=== PATIENT | male | born 1990 | race Hispanic/Latino ===

== ENCOUNTER 2017-11-17 21:53 | Emergency (ER) | payer SELFPAY ==
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
== END 2017-11-17 23:15 | disposition home or self-care (01) ==
LOC: ER 21:53
DX: R21 Rash and other nonspecific skin eruption (principal)
CPT/HCPCS: 99281

== ENCOUNTER 2017-11-22 07:01 | Emergency (ER) | payer SELFPAY ==
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
== END 2017-11-22 07:36 | disposition home or self-care (01) ==
LOC: ER 07:01
DX: R21 Rash and other nonspecific skin eruption (principal)
CPT/HCPCS: 99282

== ENCOUNTER 2022-12-23 11:46 | Emergency (ER) | payer SELFPAY ==
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
[2022-12-23] MEDS ORDERED: IBUPROFEN 200 MG TAB PO ONE (12:23)
[2022-12-23] MEDS ORDERED: IBUPROFEN 400 MG TAB ONE (12:23)
[2022-12-23] MEDS ORDERED: FAMOTIDINE 20 MG TAB ONE (12:23)
[2022-12-23 12:43] VITALS: BP 138/85; TEMP 99.1; O2SAT 100
== END 2022-12-23 12:20 | disposition home or self-care (01) ==
LOC: ER 11:46
DX: M25.561 Pain in right knee (principal)
CPT/HCPCS: 99283

== ENCOUNTER 2023-09-19 01:54 | Emergency (ER) | payer SELFPAY ==
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
[2023-09-19 02:36] VITALS: BP 147/98; TEMP 97.9; O2SAT 100
== END 2023-09-19 02:31 | disposition home or self-care (01) ==
LOC: ER 01:54
DX: S01.01XA Laceration without foreign body of scalp, initial encounter (principal)
CPT/HCPCS: 99284